=== PATIENT | female | born 1965 | race African-American/Black ===

== ENCOUNTER 2016-05-16 05:53 | Day surgery (SDC) | payer BC, OTHER ==
[2016-05-15 14:06] VITALS: BMI 27.9
--- NOTE | 2016-05-16 07:08 | HP ---
Admitting History and Physical - Primary Care Physician PCP: Dieudonne Wadsworth - Admission History of Present Illness: patient is a 50 y/o female with a past medical history of depression. She presents for ECT. patient has received ECT in the past with good results as per the patient. She was recently hospitalized at [facility] on 04/25/16 for depression. She denies any suicide attempts. patient denies any suicidal or homicidal ideation, visual or auditory hallucination.. Patient reports compliance with prescribed medications. History Source: Patient Limitations to Obtaining History: No Limitations - Past Medical History ...LMP: 05/09/16 ...: No - Smoking History Smoking history: Never smoked Have you smoked in the past 12 months: No - Alcohol/Substance Use Hx Alcohol Use: No Home Medications - Allergies Allergies/Adverse Reactions: Allergies Allergy/AdvReac Type Severity Reaction Status Date / Time egg AdvReac Intermediate INCREASES Verified 05/15/16 13:26 MUCOUS - Home Medications Home Medications: Ambulatory Orders Chlorhexidine Gluconate [Peridex -] 15 ml MM ASDIR PRN 05/15/16 Escitalopram Oxalate [Lexapro -] 20 mg PO HS 05/15/16 Hydrocortisone 1% Ointment [Hytone 1% Ointment -] 1 applic TP ASDIR PRN Ketoconazole 2% Cream [Nizoral 2% Cream -] 1 applic TP DAILY 05/15/16 Ketoprofen, Micronized [Ketoprofen Micronized] 25 gm MC ASDIR PRN 05/15/16 Lidocaine 5% Top. Ointment [Xylocaine 5% Top. Ointment] 1 applic TP ASDIR Lorazepam 0.5 mg PO BID 05/15/16 Melatonin 6 mg PO HS 05/15/16 Multivit/Iron/FA/K/Herb No.244 [[employer]ive [employer] Mv Tablet] 1 each PO BID Quetiapine Fumarate [Seroquel -] 300 mg PO HS 05/15/16 Quetiapine Fumarate [Seroquel] 100 mg PO DAILY 05/15/16 Family Disease History - Family Disease History Family History: Unremarkable Review of Systems - Review of Systems Constitutional: reports: No Symptoms Eyes: reports: No Symptoms HENT: reports: No Symptoms Neck: reports: No Symptoms Cardiovascular: reports: No Symptoms Respiratory: reports: No Symptoms Gastrointestinal: reports: No Symptoms Genitourinary: reports: No Symptoms Breasts: reports: No Symptoms Reported Musculoskeletal: reports: No Symptoms Integumentary: reports: No Symptoms Neurological: reports: No Symptoms Endocrine: reports: No Symptoms Hematology/Lymphatic: reports: No Symptoms Psychiatric: reports: Depression Physical Examination Constitutional: Yes: Well Nourished, No Distress, Calm Eyes: Yes: WNL, Conjunctiva Clear, EOM Intact HENT: Yes: WNL, Atraumatic, Normocephalic Neck: Yes: WNL, Supple, Trachea Midline Cardiovascular: Yes: WNL, Regular Rate and Rhythm, S1, S2 Respiratory: Yes: WNL, Regular, CTA Bilaterally Gastrointestinal: Yes: WNL, Normal Bowel Sounds, Soft ...Rectal Exam: Yes: Deferred Renal/: Yes: WNL Musculoskeletal: Yes: WNL Extremities: Yes: WNL Edema: No Peripheral Pulses WNL: Yes Peripheral Pulses: Left Radial: 4+, Right Radial: 4+, Left Doralis Pedis: 3+, Right Dorsalis Pedis: 3+, Left Femoral: 3+, Right Femoral: 3+ Integumentary: Yes: WNL Neurological: Yes: WNL, Alert, Oriented ...Motor Strength: WNL Psychiatric: Yes: WNL, Alert, Oriented, Other (tearful) Labs: reviewed 05/05/16 Imaging - Results EKG: Image Reviewed, Other (nsr no ischmemic changes) Assessment/Plan patient is a 50 y/o female that presents for ECT, labs and ekg reviewed patient has received ECT in the past and denies any adverse reaction to anesthesia. pt is low risk for ECT informed consent, risks/benefits to be obtained by Dr Antoine.
[2016-05-16] MEDS ORDERED: KETAMINE HCL 500 MG/10 ML VIAL ONE (08:13)
[2016-05-16 09:45] VITALS: TEMP 98
[2016-05-16 09:46] VITALS: BP 150/89; PULSE 77
== END 2016-05-16 10:15 | disposition home or self-care (01) ==
LOC: FECT 05:53
PROVIDERS: ATTEND Psychiatry & Neurology Psychiatry
PROC: GZB4ZZZ Other Electroconvulsive Therapy (ICD-10-PCS; principal; 2016-05-16 07:30)
DX: F33.2 Major depressive disorder, recurrent severe without psychotic features (principal)
CPT/HCPCS: 84703; 90870; 94760

== ENCOUNTER 2016-05-19 05:39 | Day surgery (SDC) | payer OTHER, BC ==
[2016-05-16 12:09] VITALS: BMI 27.9
[2016-05-19] MEDS ORDERED: KETAMINE HCL 500 MG/10 ML VIAL ONE (07:43)
[2016-05-19] MEDS ORDERED: LACTATED RINGERS SOLUTION 1,000 ML IV SCH (09:00)
[2016-05-19] MEDS ORDERED: ACETAMINOPHEN 325 MG TABLET (FP) ONE (09:51)
[2016-05-19 10:06] VITALS: BP 137/77; PULSE 77; TEMP 98.8
[2016-05-19] MEDS ORDERED: ACETAMINOPHEN 325 MG TABLET (FP) PO ONE (14:38)
== END 2016-05-19 10:30 | disposition home or self-care (01) ==
LOC: FECT 05:39
PROVIDERS: ATTEND Psychiatry & Neurology Psychiatry
PROC: GZB4ZZZ Other Electroconvulsive Therapy (ICD-10-PCS; principal; 2016-05-19 07:45)
DX: F33.2 Major depressive disorder, recurrent severe without psychotic features (principal)
CPT/HCPCS: 90870; 94760

== ENCOUNTER 2016-05-21 05:43 | Day surgery (SDC) | payer BC, OTHER ==
[2016-05-20 11:01] VITALS: BMI 27.9
[2016-05-21 07:52] VITALS: TEMP 97.6
[2016-05-21] MEDS ORDERED: KETAMINE HCL 500 MG/10 ML VIAL ONE (08:15)
[2016-05-21] MEDS ORDERED: ONDANSETRON 4 MG/2 ML VIAL IVPUSH PRN (08:49)
[2016-05-21 09:43] VITALS: BP 149/85; PULSE 83
== END 2016-05-21 10:00 | disposition home or self-care (01) ==
LOC: FECT 05:43
PROVIDERS: ATTEND Psychiatry & Neurology Psychiatry
PROC: GZB4ZZZ Other Electroconvulsive Therapy (ICD-10-PCS; principal; 2016-05-21 08:15)
DX: F33.2 Major depressive disorder, recurrent severe without psychotic features (principal)
CPT/HCPCS: 84703; 90870; 94760

== ENCOUNTER 2016-05-23 05:39 | Day surgery (SDC) | payer BC, OTHER ==
[2016-05-20 14:18] VITALS: BMI 27.9
[2016-05-23] MEDS ORDERED: KETAMINE HCL 500 MG/10 ML VIAL ONE (07:54)
[2016-05-23] MEDS ORDERED: ACETAMINOPHEN 325 MG TABLET (FP) PO PRN (09:05)
[2016-05-23 09:32] VITALS: TEMP 98.1
[2016-05-23 09:33] VITALS: BP 158/88; PULSE 85
== END 2016-05-23 09:30 | disposition home or self-care (01) ==
LOC: FECT 05:39
PROVIDERS: ATTEND Psychiatry & Neurology Psychiatry
PROC: GZB4ZZZ Other Electroconvulsive Therapy (ICD-10-PCS; principal; 2016-05-23 07:45)
DX: F33.2 Major depressive disorder, recurrent severe without psychotic features (principal)
CPT/HCPCS: 90870; 94760

== ENCOUNTER 2016-06-02 05:37 | Day surgery (SDC) | payer BC, OTHER ==
[2016-05-27 10:50] VITALS: BMI 27.9
[2016-06-02] MEDS ORDERED: KETAMINE HCL 500 MG/10 ML VIAL ONE (08:31)
[2016-06-02 10:11] VITALS: TEMP 98.5
[2016-06-02 10:14] VITALS: BP 147/79; PULSE 76
== END 2016-06-02 10:15 | disposition home or self-care (01) ==
LOC: FECT 05:37
PROVIDERS: ATTEND Psychiatry & Neurology Psychiatry
PROC: GZB4ZZZ Other Electroconvulsive Therapy (ICD-10-PCS; principal; 2016-06-02 07:30)
DX: F33.2 Major depressive disorder, recurrent severe without psychotic features (principal)
CPT/HCPCS: 84703; 90870; 94760

== ENCOUNTER 2016-06-10 05:56 | Day surgery (SDC) | payer BC, OTHER ==
[2016-06-04 17:19] VITALS: BMI 27.9
[2016-06-10] MEDS ORDERED: KETAMINE HCL 500 MG/10 ML VIAL ONE (08:19)
[2016-06-10 09:47] VITALS: TEMP 98.2
[2016-06-10 10:10] VITALS: BP 144/88; PULSE 74
== END 2016-06-10 10:45 | disposition home or self-care (01) ==
LOC: FECT 05:56
PROVIDERS: ATTEND Psychiatry & Neurology Psychiatry
PROC: GZB4ZZZ Other Electroconvulsive Therapy (ICD-10-PCS; principal; 2016-06-10 07:15)
DX: F33.2 Major depressive disorder, recurrent severe without psychotic features (principal)
CPT/HCPCS: 84703; 90870; 94760

== ENCOUNTER 2016-06-18 05:38 | Day surgery (SDC) | payer BC, OTHER ==
[2016-06-10 07:59] VITALS: BMI 27.9
[2016-06-18] MEDS ORDERED: ONDANSETRON 4 MG/2 ML VIAL IVPUSH PRN (06:48)
[2016-06-18] MEDS ORDERED: LACTATED RINGERS SOLUTION 1,000 ML IV SCH (07:00)
--- NOTE | 2016-06-18 07:02 | HP ---
Admitting History and Physical - Admission History of Present Illness: patient is a 50 y/o female with a past medical history of depression that presents for ECT, her last ECT was 06/10/16. She was recently diagnosed with pharyngitis and was placed on amoxicillin. patient reports she was evaluated by her dentist and her amoxicillin was extended another week. Patient reports her seroquel was increased to 400mg. History Source: Patient Limitations to Obtaining History: No Limitations - Past Medical History ...LMP: 05/09/16 - Smoking History Smoking history: Never smoked Have you smoked in the past 12 months: No - Alcohol/Substance Use Hx Alcohol Use: No History of Substance Use: reports: None - Social History Usual Living Arrangement: Yes: With Spouse ADL: Independent History of Recent Travel: No Home Medications - Allergies Allergies/Adverse Reactions: Allergies Allergy/AdvReac Type Severity Reaction Status Date / Time egg AdvReac Intermediate INCREASES Verified 05/20/16 14:15 MUCOUS - Home Medications Home Medications: Ambulatory Orders Chlorhexidine Gluconate [Peridex -] 15 ml MM ASDIR PRN 05/15/16 Escitalopram Oxalate [Lexapro -] 20 mg PO HS 05/15/16 Hydrocortisone 1% Ointment [Hytone 1% Ointment -] 1 applic TP ASDIR PRN Ketoconazole 2% Cream [Nizoral 2% Cream -] 1 applic TP DAILY 05/15/16 Ketoprofen, Micronized [Ketoprofen Micronized] 25 gm MC ASDIR PRN 05/15/16 Lidocaine 5% Top. Ointment [Xylocaine 5% Top. Ointment -] 1 applic TP ASDIR Lorazepam 0.5 mg PO BID 05/15/16 Melatonin 6 mg PO HS 05/15/16 Multivit/Iron/FA/K/Herb No.244 [Alive [employer] Mv Tablet] 1 each PO BID Quetiapine Fumarate [Seroquel -] 300 mg PO HS 05/15/16 Quetiapine Fumarate [Seroquel] 100 mg PO DAILY 05/15/16 Family Disease History - Family Disease History Family History: Denies Review of Systems - Review of Systems Constitutional: reports: No Symptoms Eyes: reports: No Symptoms HENT: reports: Throat Pain, Toothache Neck: reports: No Symptoms Cardiovascular: reports: No Symptoms Respiratory: reports: No Symptoms Gastrointestinal: reports: No Symptoms Genitourinary: reports: No Symptoms Musculoskeletal: reports: No Symptoms Integumentary: reports: No Symptoms Neurological: reports: No Symptoms Endocrine: reports: No Symptoms Hematology/Lymphatic: reports: No Symptoms Psychiatric: reports: Depression Physical Examination Constitutional: Yes: Well Nourished, No Distress, Calm Eyes: Yes: WNL, Conjunctiva Clear, EOM Intact HENT: Yes: Atraumatic, Normocephalic, Pharyngeal Erythema, Other (uvula midline) Neck: Yes: WNL, Supple, Trachea Midline Cardiovascular: Yes: WNL, Regular Rate and Rhythm, S1, S2 Respiratory: Yes: WNL, Regular, CTA Bilaterally Gastrointestinal: Yes: WNL, Normal Bowel Sounds, Soft ...Rectal Exam: Yes: Deferred Renal/: Yes: WNL Musculoskeletal: Yes: WNL Extremities: Yes: WNL Edema: No Peripheral Pulses WNL: Yes Peripheral Pulses: Left Radial: 4+, Right Radial: 4+, Left Doralis Pedis: 3+, Right Dorsalis Pedis: 3+, Left Femoral: 3+, Right Femoral: 3+ Neurological: Yes: WNL, Alert, Oriented ...Motor Strength: WNL Psychiatric: Yes: WNL, Alert, Oriented Labs: reviewed 05/02 Imaging - Results EKG: Image Reviewed, Other (nsr no ischemic changes) Assessment/Plan pt is a 50 y/o female that presents for ect, she has received ect in the past and denies any adverse reaction to anesthesia. labs and ekg reviewed pt is low risk for procedure. informed consent, risks/benefits to be obtained by Dr Antoine
[2016-06-18] MEDS ORDERED: KETAMINE HCL 500 MG/10 ML VIAL ONE (08:21)
[2016-06-18 10:59] VITALS: BP 131/71; PULSE 71; TEMP 98.4
== END 2016-06-18 11:00 | disposition home or self-care (01) ==
LOC: FECT 05:38
PROVIDERS: ATTEND Psychiatry & Neurology Psychiatry
PROC: GZB4ZZZ Other Electroconvulsive Therapy (ICD-10-PCS; principal; 2016-06-18 07:45)
DX: F33.2 Major depressive disorder, recurrent severe without psychotic features (principal)
CPT/HCPCS: 84703; 90870; 94760

== ENCOUNTER 2016-06-26 05:37 | Day surgery (SDC) | payer OTHER ==
[2016-06-13 11:23] VITALS: BMI 27.9
[2016-06-26 09:17] VITALS: BP 139/89; PULSE 84; TEMP 97.7
[2016-06-26] MEDS ORDERED: ACETAMINOPHEN 325 MG TABLET (FP) ONE (09:39)
[2016-06-26] MEDS ORDERED: KETAMINE HCL 500 MG/10 ML VIAL ONE (10:06)
== END 2016-06-26 09:30 | disposition home or self-care (01) ==
LOC: FECT 05:37
PROVIDERS: ATTEND Psychiatry & Neurology Psychiatry
PROC: GZB4ZZZ Other Electroconvulsive Therapy (ICD-10-PCS; principal; 2016-06-26 07:00)
DX: F33.2 Major depressive disorder, recurrent severe without psychotic features (principal)
CPT/HCPCS: 84703; 90870; 94760

== ENCOUNTER 2016-07-10 05:43 | Day surgery (SDC) | payer OTHER ==
[2016-06-23 14:30] VITALS: BMI 27.9
[2016-07-10] MEDS ORDERED: KETAMINE HCL 500 MG/10 ML VIAL ONE (07:53)
[2016-07-10 09:24] VITALS: TEMP 97.5
[2016-07-10 09:25] VITALS: BP 144/74; PULSE 77
== END 2016-07-10 09:45 | disposition home or self-care (01) ==
LOC: FECT 05:43
PROVIDERS: ATTEND Psychiatry & Neurology Psychiatry
PROC: GZB4ZZZ Other Electroconvulsive Therapy (ICD-10-PCS; principal; 2016-07-10 07:30)
DX: F33.2 Major depressive disorder, recurrent severe without psychotic features (principal)
CPT/HCPCS: 84703; 90870; 94760